=== PATIENT | female | born 1970 | race Caucasian/White ===

== ENCOUNTER → 2018-01-30 06:35 | Outpatient (CLI) | payer BC, SELFPAY ==
--- NOTE | 2018-01-30 06:39 | MRI_ITS ---
STUDY: MRI LEFT SHOULDER REASON FOR EXAM: Left shoulder pain, patient felt a snap when reaching behind 4 weeks ago, breast cancer with known metastatic disease to the humerus. TECHNIQUE: Standardized fat and water weighted pulse sequences were obtained in all 3 orthogonal planes. COMPARISON: None. FINDINGS: There is mild supraspinatus tendinosis (T2 coronal image 9) without discrete tendon tear. Normal infraspinatus tendon. Normal subscapularis tendon. Normal teres minor tendon. Normal supraspinatus muscle. Normal infraspinatus muscle. Normal subscapularis muscle. Normal teres minor muscle. Normal glenohumeral articulation. There is infiltrative lesion of the proximal humeral metaphysis and diaphysis with circumferential soft tissue extension (T2 coronal images 9-18) consistent with metastatic disease. There is an incomplete pathologic fracture of the lateral aspect of the proximal humeral diaphysis (T2 axial images 19, 20; T2 sagittal image 15). Normal biceps labral complex. Normal intracapsular long biceps tendon. Normal labrum. Normal capsulo- ligamentous complex. Normal acromioclavicular articulation. There is a Type II morphology (curved), with a neutral orientation. There is no subacromial-subdeltoid bursal fluid. Normal visualized coracohumeral and coracoacromial ligaments. There is a low-grade strain of the distal deltoid muscle near the humeral insertion (T2 coronal images 15-17). Normal trapezius muscle. MRI/Upper Ext Joint Only(Routine) IMPRESSION: Metastatic disease of the proximal humerus with incomplete pathologic fracture of the proximal humeral diaphysis. Low-grade strain of the distal deltoid muscle. Mild supraspinatus tendinosis without demonstrated rotator cuff tear. Electronically Signed: Seng Trujillo MD at 9:05 EDT Tel , Service support ,
== END ==
PROVIDERS: Visit Provider Internal Medicine Hematology & Oncology
DX: C50.512 Malignant neoplasm of lower-outer quadrant of left female breast (principal); C79.51 Secondary malignant neoplasm of bone; Z17.1 Estrogen receptor negative status [ER-]; M25.512 Pain in left shoulder; G89.29 Other chronic pain
CPT/HCPCS: 73221

== ENCOUNTER → 2018-03-12 15:03 | Outpatient (CLI) | payer BC, SELFPAY ==
--- NOTE | 2018-03-12 15:08 | MRI_ITS ---
STUDY: MRI BRAIN WITH AND WITHOUT CONTRAST REASON FOR EXAM: Female, 48 years old. Breast cancer and bone metastasis TECHNIQUE: Standardized multiplanar fat and water weighted pulse sequences were obtained. 7 ml of Gadavist contrast material was administered intravenously for the contrast portion of the examination. COMPARISON: None. FINDINGS: Normal size of the ventricles and extra-axial spaces for the patient's age. Normal white matter tracts of the supratentorial brain. Normal bilateral basal ganglia. Normal thalami. There is no extra-axial fluid accumulation. Normal flow voids within the major intracranial circulation suggesting patency by spin echo criteria. Normal venous enhancement. There is no enhancing intra-axial or extra-axial abnormality. Normal sella turcica, pituitary gland, infundibular stalk, optic chiasm and hypothalamus. Normal tectal plate and pineal gland. Normal midbrain, cara and medulla. There is a thick-walled rim-enhancing nodule in left inferior cerebellar hemisphere measuring 1.6 x 1.4 cm with associated vasogenic edema but without appreciable mass effect upon the fourth ventricle. Normal basal cisterns. Normal bilateral temporal bones. Normal bilateral internal auditory canals. No demonstrated orbital abnormality, within the constraints of a routine brain study. There is minor mucosal thickening within the maxillary ethmoid and sphenoid sinuses. Normal calvarium and skull base. There are multiple nonspecific soft tissue nodules within the scalp.. Normal visualized upper cervical spine. MRI/Brain W/WO Contrast IMPRESSION: Findings consistent with metastatic lesion in the left inferior cerebellar hemisphere. Multiple nonspecific soft tissue nodules within the scalp of uncertain etiology or clinical significance. Electronically Signed: Tomas Rousseau MD at 16:58 EDT , Service support ,
== END ==
PROVIDERS: Visit Provider Internal Medicine Hematology & Oncology
DX: C50.512 Malignant neoplasm of lower-outer quadrant of left female breast (principal); Z17.1 Estrogen receptor negative status [ER-]; C78.00 Secondary malignant neoplasm of unspecified lung; C79.31 Secondary malignant neoplasm of brain; C79.49 Secondary malignant neoplasm of other parts of nervous system
CPT/HCPCS: 70553; A9585